=== PATIENT | female | born 1950 | race African-American/Black ===

== ENCOUNTER 2017-06-06 08:22 | Emergency (ER) | payer MEDICARE, MEDICAID ==
[~2017-06-06] VITALS: Ht 162.6 cm; Wt 80.0 kg
[2017-06-06] MEDS ORDERED: PRAV10TA35 PO (08:38)
[2017-06-06] MEDS ORDERED: CLON0.1T PO (08:38)
[2017-06-06] MEDS ORDERED: LEVO75TA7 PO (08:38)
[2017-06-06] MEDS ORDERED: TRAM50TA3 PO (08:38)
[2017-06-06] MEDS ORDERED: ZET10 PO (08:38)
[2017-06-06] MEDS ORDERED: ESOM40CA PO (08:38)
[2017-06-06] MEDS ORDERED: ALPR0.5T PO (08:38)
[2017-06-06] MEDS ORDERED: BENICAR/HCT (08:38)
[2017-06-06] MEDS ORDERED: LABE200T28 PO (08:38)
[2017-06-06 11:00] VITALS: BP 140/85
== END 2017-06-06 13:03 | disposition left against medical advice (07) ==
LOC: ER 08:22
DX: Z53.21 Procedure and treatment not carried out due to patient leaving prior to being seen by health care provider (principal); Z88.5 Allergy status to narcotic agent

== ENCOUNTER 2022-01-14 17:59 | Emergency (ER) | payer MEDICARE, MEDICAID ==
[~2022-01-14 17:59] MED LIST: ALPR0.5T PO; BENICAR/HCT; CLON0.1T PO; ESOM40CA PO; EZET10TA13 PO; LABE200T9 PO; LEVO75TA7 PO; PRAV10TA35 PO; TRAM50TA3 PO
== END 2022-01-14 19:52 | disposition left against medical advice (07) ==
LOC: ER 17:59
DX: Z53.21 Procedure and treatment not carried out due to patient leaving prior to being seen by health care provider (principal)